=== PATIENT | female | born 1990 | race Caucasian/White ===

== ENCOUNTER 2021-03-28 12:58 | Emergency (ER) | payer SELFPAY ==
[2021-03-28 14:36] VITALS: BP 177/122; PULSE 88; RESP 18; TEMP 36.1; O2SAT 98; BMI 21.2
--- NOTE | 2021-03-28 15:16 | ED_ITS ---
HPI - COVID General: Chief Complaint: COVID symptoms Stated Complaint: not feeling well, no taste Time Seen by Provider: 03/28/21 15:11 Triage information: Has fever, cough or shortness of breath . No known COVID + exposure last 14 days History of Present Illness: HPI Narrative: Patient is a 31-year-old female comes to the ED with upper respiratory symptoms. Patient says symptoms started about 2 days ago. She reports having a loss of taste and smell with some nasal congestion and drainage along with body aches. She reports having a very mild dry cough. Denies any known COVID-19 positive contacts but would like to be t ested for COVID-19. COVID 19 common symptoms: positive non-productive cough, body aches and nasal congestion; negative fever(s), chills, productive cough, dyspnea, fatigue, headache(s), throat pain, nausea, vomiting or diarrhea COVID 19 other sytmptoms: negative chest pain COVID Results: No Data to Display Review of Systems Narrative: Loss of taste and smell. Const: Reports: body aches and malaise; Denies: fever(s), chills or fatigue Eyes: Denies: change in vision or eye discomfort ENMT: Reports: nasal discharge and nasal congestion; Denies: throat pain or odynophagia Card: Denies: chest pain, palpitations, edema, swelling of feet/ankles, dy spnea on exertion or orthopnea Resp: Reports: non-productive cough; Denies: dyspnea or productive cough GI: Denies: abdominal pain, nausea, vomiting, diarrhea, constipation or hematochezia : Denies: flank pain, dysuria or hematuria Musc: Denies: neck pain, back pain or extremity swelling Skin/Breast: Denies: rash or new lesions Neuro: Denies: headache(s), numbness in extremities or weakness in extremities Physical Exam Const: COMMON NORMALS: no acute distress, patient oriented x3 and alert GENERAL APPEARANCE: cooperative and comfortable HENMT: COMMON NORMALS: normocephalic HEAD & SCALP: normocephalic MOUTH: Normal oral and palatal mucosa present THROAT: posterior oropharynx normal and uvula midline Neck/C-Spine: COMMON NORMALS: supple GENERAL: Yes normal visual inspection Resp: COMMON NORMALS: normal respiratory effort, No retractions, No use of accessory muscles and clear to auscultation bilaterally EFFORT & INSPECTION: Yes able to speak in complete sentences, No tachypneic, No respiratory distress and No labored AUSCULTATION: clear to auscultation bilaterally Cardio: COMMON NORMALS: regular rate, regular rhythm, S1 normal heart sound present, S2 normal heart sound present, No gallops present (Cardio), No clicks present (Cardio), No murmurs present (Cardio) and Peripheral pulses 2+ throughout RATE: regular rate RHYTHM: regular rhythm HEART SOUNDS: S1 normal heart sound present and S2 normal heart sound present PERIPHERAL PULSES: Peripheral pulses 2+ throughout GI: COMMON NORMALS: Normal to inspection, nondistended, normoactive bowel sounds present, Soft to palpation, non-tender and no masses PALPATION: Yes Soft to palpation : COMMON NORMALS: Yes no CVA tenderness BLADDER/KIDNEY EXAM: Yes no CVA tenderness Back/Pelvis: COMMON NORMALS: no CVA tenderness Extremity: COMMON NORMALS: normal to inspection Neuro: COMMON NORMALS: patient oriented x3 and moves all extremities SENSORIUM/ORIENTATION: Yes alert Skin: GENERAL SKIN EXAM: dry skin Course Vital Signs: Vital signs: Vital Signs Temperature 96.9 F L 03/28/21 14:36 Pulse Rate 88 03/28/21 14:36 Respiratory Rate 18 03/28/21 14:36 Blood Pressure 177/122 03/28/21 14:36 Pulse Oximetry 98 03/28/21 14:36 MDM - COVID MDM Narrative: Medical decision making narrative: Patient is a 31-year-old female comes to the ED with mild Covid symptoms. Her vitals are stable and patient appears clinically well for discharge home. Rest of exam is benign. We performed a Covid PCR test and results are pending. Patient was instructed on self quarantine procedures and told to follow-up with PCP in 7 to 10 days reevaluation. Return to ED precautions given. Patient understood agree with plan. Lab Data: Attestation: I reviewed the patient's lab results. COVID Results: No Data to Display Discharge Plan Discharge Patient Disposition: Home Clinical Impression: Upper respiratory infection Qualifiers: URI type: unspecified viral URI Qualified Code(s): J06.9 - Acute upper respiratory infection, unspecified Condition: Stable Discharge Orders: Discharge ED (Routine); Ordered 03/28/21 Ordered By: Stevan Madeline Referrals: Roberto Ford MD [Primary Care Provider] - Discharge Diet: Regular Discharge Activity: Limit activity as instructed Patient Instructions: Upper Respiratory Infection (ED), Viral Syndrome (ED) Activity Restrictions/Additional Instructions: Follow-up with medical provider as directed in 7-10 days. COVID testing was performed and sent to lab and results will be back in 1 to 2 days. [facility] should contact you to let you know Covid results, but you can also contact [facility] to find out results as well. Self quarantine until you get Covid results. If positive self quarantine for the next 10 days starting from day of onset of symptoms. Take ibuprofen or Tylenol for fevers. Drink plenty of fluids and stay hydrated. Symptom management with [id number] cough and nasal decongestant meds. Return to the ER or your medical provider if condition worsens. Please read and understand discharge instructions. If any questions, please ask Coding Level of Care Code ED Back Filler Operator for Chg Fwd Exam Comprehensive
[2021-03-29 14:48] LABS: Coronavirus Test Green County Detected
--- NOTE | 2021-03-29 16:14 | PC.NURSE ---
notified pt of positive covid results.
== END 2021-03-28 15:40 | disposition home or self-care (01) ==
PROVIDERS: Emergency Provider Physician Assistant; PCP Obstetrics & Gynecology
DX: U07.1 COVID-19 (principal)
CPT/HCPCS: 87635; 99281

== ENCOUNTER 2023-04-08 18:37 | Emergency (ER) | payer MEDICAID, SELFPAY ==
[2023-04-08 19:01] VITALS: BP 205/144; PULSE 76; RESP 16; TEMP 36.6; O2SAT 98; BMI 26.0
[2023-04-08 19:52] VITALS: BP 198/137; PULSE 68; RESP 18; O2SAT 100
[2023-04-08] MEDS: labetalol 5 mg/mL SDV 20mL 10 MG IVP (20:14)
[2023-04-08] MEDS: sodium chloride 0.9% 1,000 ML 999 ML IV (20:14)
[2023-04-08] MEDS: famotidine 20 mg/2 mL INJ IVP (20:15)
[2023-04-08] MEDS: metoclopramide 5 mg/mL SDV 2 mL 10 MG IVP (20:15)
[2023-04-08 20:34] LABS: Basophils % 0.2 %; Eosinophils # 0.1 10^3/uL (0.0-0.8); Eosinophils % 0.9 %; Hematocrit 45.2 % (37.0-47.0); Hemoglobin 15.8 g/dL (11.5-15.3); Lymphocytes # 1.8 10^3/uL (0.8-4.8); Lymphocytes % 22.1 %; Mean Corpuscular Hemoglobin 32.7 pg (28.0-34.0); Mean Corpuscular Volume 93.6 fl (81-99); Mean Platelet Volume 9.9 fL (7.4-10.4); Monocytes # 0.5 10^3/uL (0.2-0.9); Monocytes % 6.3 %; Neutrophils # 5.65 10^3/uL (1.8-7.7); Neutrophils % 70.3 %; Nucleated Red Blood Cells % 0 %; Platelet Count 182 10^3/cmm (130-400); Red Blood Count 4.83 10^6/uL (4.1-5.3); Red Cell Distribution Width 14.3 % (12.1-15.1); White Blood Count 8.1 10^3/uL (4.0-10.0)
[2023-04-08 20:35] LABS: Add Urine Microscopic? NO; Charge for UA Resulting for Rev
[2023-04-08 20:51] LABS: Alanine Aminotransferase 13 U/L (0-33); Albumin Level 4.3 g/dL (3.5-5.2); Alkaline Phosphatase 69 U/L (35-105); Blood Urea Nitrogen 9 mg/dL (6-20); Calcium 9.3 mg/dL (8.5-10.5); Carbon Dioxide 23 mmol/L (22-29); Chloride 101 mmol/L (98-107); Globulin 3.1 g/dL (1.3-4.6); Glomerular Filtration Rate 140.4 mL/min (90-130); Glucose 89 mg/dL (65-115); Osmolality Calculated 280 mOsm/kg (285-295); Sodium 136 mmol/L (136-145); Total Bilirubin 0.5 mg/dL (0.15-1.2); Total Protein 7.4 g/dL (6.6-8.7)
[2023-04-08 20:57] LABS: Bilirubin Urine Neg (Negative); Blood Urine Neg (Negative); Glucose Urine UA Norm (Normal); Ketones Urine Negative (Negative); Leukocyte Esterase Urine Negative (Negative); Nitrate Urine Negative (Negative); Protein Urine Neg (Negative); Urine Appearance Clear (CLEAR); Urine Color Yellow (Yellow); Urobilinogen Urine 1 mg/dL (Negative); pH Urine 7 (5-7)
[2023-04-08 21:00] LABS: Anion Gap 15.7 (5-19); Aspartate Amino Transferase 15 U/L (0-32); Potassium 3.7 mmol/L (3.5-5.1)
[2023-04-08 21:04] VITALS: BP 205/148; PULSE 60; O2SAT 99
[2023-04-08] MEDS: labetalol 5 mg/mL SDV 20mL 20 MG IVP (21:24)
--- NOTE | 2023-04-08 21:28 | USR_ITS ---
PROCEDURE INFORMATION: Exam: US , Limited Exam date and time: 04/08/2023 9:45 PM Age: 33 years old Clinical indication: complicated by abdominal or pelvic pain; Right lower quadrant; First trimester (<14 weeks 0 days); Gestational age or lmp: 6weeks 3 days; LABS AND CLINICAL REPORTS: Last menstrual period start date: Unknown TECHNIQUE: Imaging protocol: Real-time ultrasound of the maternal uterus with image documentation. Exam focused on the clinical indication. COMPARISON: US OB limited [id number] 02/10/2018 3:42 AM FINDINGS: Gestation: 4.4 mm yolk sac. heart rate: 150 bpm. heart beat 150 bpm. BIOMETRY: Gestational age (AUA): 6 w 3 d. Single viable intrauterine with EGA 6 weeks 3 days. Estimated due date (AUA): SVEN by ultrasound November 29, 2023. Hoback-Rump length (CRL): 6.4 mm crown-rump length with EGA 6 weeks 3 days. MATERNAL: Right ovary/adnexa: 2.9 x 2.3 x 2.6 cm right ovary. Left ovary/adnexa: 3.9 x 3.8 x 2.6 cm left ovary. US/US OB >= 14 weeks fetus [id number] IMPRESSION: 1. Single viable intrauterine with EGA 6 weeks 3 days. 2. SVEN by ultrasound November 29, 2023.
--- NOTE | 2023-04-08 22:21 | ED_ITS ---
HPI - Nausea/Vomiting/Diarrhea General: Chief complaint: Nausea/Vomiting/Diarrhea Stated complaint: 16 weeks , chills, nausea Time Seen by Provider: 04/08/23 19:47 History of Present Illness: 33-year-old occasion female who is G5, P2 with current treatment of unknown age. Patient reveals that she is about 20 weeks by last menstruation. No recent care with this . Is any vaginal bleeding, vaginal discharge, back pain, headache. Presents emergency room today with with nausea, vomiting and chills within the past few days. Denies any dysuria, hematuria, blurry vision, change in vision. She also reveals having history of hypertension prior to getting and stopped taking all of medication for blood pressure. Upon present emergency room the patient was found to have elevated blood pressure. Associated symtoms: Denies chest pain, fatigue, malaise, palpitations or syncope Review of Systems General: Reports: 10 or more systems reviewed and unremarkable except in HPI and below Const: Reports: chills; Denies: fever(s), body aches, change in appetite, change in weight, fatigue or malaise Card: Denies: chest pain, palpitations, irregular heart rhythm, swelling of feet/ankles, lightheadedness or syncope [facility] ED PFSH: Medical History (Updated 04/08/23 @ 22:32 by Lianna Dunne MD) Psychiatric care Physical Exam Const: COMMON NORMALS: no acute distress, average body habitus, patient oriented x3, no limitations, healthy appearing, alert and well nourished HENMT: COMMON NORMALS: normocephalic, atraumatic, hearing grossly normal bilaterally, external ears normal, EAC's normal, TM's normal bilaterally, Normal external nose present, Normal nasal mucous membranes and turbinates present, moist oral mucous membranes, oropharynx normal, dentition normal and gingiva normal HEAD & SCALP: normocephalic and atraumatic NOSE: Normal external nose present and Normal nasal mucous membranes and turbinates present EXTERNAL EAR: Yes external ears normal EXTERNAL AUDITORY CANAL: EAC's normal TYMPANIC MEMBRANE: TM's normal bilaterally Neck/C-Spine: COMMON NORMALS: full ROM, no lymphadenopathy, supple, no meningeal signs, no JVD, Thyroid normal and No carotid bruits THYROID: Thyroid normal Chest: COMMONS NORMALS: normal inspection of the chest, normal palpation of entire chest wall, normal inspection of the breasts and normal palpation of the breasts Breast/axilla inspection: Yes normal inspection of the breasts BREAST/AXILLA PALPATION: Yes normal palpation of the breasts Resp: COMMON NORMALS: normal respiratory effort, No retractions, No use of accessory muscles, clear to auscultation bilaterally and percussion normal AUSCULTATION: clear to auscultation bilaterally PERCUSSION: percussion normal Cardio: COMMON NORMALS: no JVD GI: COMMON NORMALS: Normal to inspection, nondistended, normoactive bowel sounds present, Soft to palpation, non-tender, No hepatosplenomegaly present, no masses and no bruits PALPATION: Yes Soft to palpation and Yes No hepatosplenomegaly present Extremity: COMMON NORMALS: normal to inspection, full ROM, capillary refill normal, no joint enlargement, no clubbing, cyanosis or edema, no calf tenderness and no pedal edema Neuro: COMMON NORMALS: patient oriented x3 SENSORIUM/ORIENTATION: Yes alert MENINGEAL SIGNS: Yes no meningeal signs Skin: COMMON NORMALS: no rashes or lesions noted, no wounds, turgor normal, no jaundice, no petechiae and no mottling GENERAL SKIN EXAM: no rashes or lesions noted and turgor normal Course Reevaluation(s): Reevaluation #1: stable in ER. nausea nad vomiting resolved but patient still with elevated blood pressure Consultations: Consultation #1: spoke with ob Dr White. recommended transfer to higher level of care Consultation #2: disused pt with [facility] and i was told the have no space for ER to ER transfer. spoke with [facility] and current waiting for acceptance Vital Signs: Vital signs: Vital Signs Temperature 97.9 F 04/08/23 19:01 Pulse Rate 78 04/08/23 23:49 Respiratory Rate 16 04/08/23 23:49 Blood Pressure 173/108 04/08/23 23:49 Pulse Oximetry 99 04/08/23 23:49 Oxygen Delivery Me thod Room Air 04/08/23 23:49 MDM - Nausea/Vomiting/Diarrhea Medical Decision Making Patient made comfortable emergency room. Patient was given multiple rounds of labetalol and hydralazine. Patient had ultrasound, CBC, CMP, UA. He was given IV fluids and Zofran. Discussed patient with OB and he recommended transfer to higher level of care facility. Discussed patient with [facility] transfer center and [facility] transfer center. Patient was accepted by Dr. Rooney at [facility] in [place]. While in emergency room, blood pressure did improve with multiple IV medication. Differential Diagnosis Likely traveler's diarrhea, food poisoning, gastroenteritis, drug-induced nausea and vomiting and dehydration (Cancer, preeclampsia, UTI) Lab Data 04/08/23 20:10 04/08/23 20:10 Radiology Impressions Ultrasound 04/08/23 21:28 IMPRESSION: 1. Single viable intrauterine with EGA 6 weeks 3 days. 2. SVEN by ultrasound November 29, 2023. Laboratory Results WBC 8.1 10^3/uL (4.0-10.0) 04/08/23 20:10 RBC 4.83 10^6/uL (4.1-5.3) 04/08/23 20:10 Hgb 15.8 g/dL (11.5-15.3) H 04/08/23 20:10 Hct 45.2 % (37.0-47.0) 04/08/23 20:10 MCV 93.6 fl (81-99) 04/08/23 20:10 MCH 32.7 pg (28.0-34.0) 04/08/23 20:10 MCHC 35.0 g/dL (30.0-36.0) 04/08/23 20:10 RDW 14.3 % (12.1-15.1) 04/08/23 20:10 Plt Count 182 10^3/cmm (130-400) 04/08/23 20:10 MPV 9.9 fL (7.4-10.4) 04/08/23 20:10 Neut % (Auto) 70.3 % 04/08/23 20:10 Lymph % (Auto) 22.1 % 04/08/23 20:10 Sevier % (Auto) 6.3 % 04/08/23 20:10 Eos % (Auto) 0.9 % 04/08/23 20:10 Baso % (Auto) 0.2 % 04/08/23 20:10 Neut # (Auto) 5.65 10^3/uL (1.8-7.7) 04/08/23 20:10 Lymph # (Auto) 1.8 10^3/uL (0.8-4.8) 04/08/23 20:10 Sevier # (Auto) 0.5 10^3/uL (0.2-0.9) 04/08/23 20:10 Eos # (Auto) 0.1 10^3/uL (0.0-0.8) 04/08/23 20:10 Baso # (Auto) 0.0 10^3/uL (0.0-0.1) 04/08/23 20:10 Nucleated RBC % (auto) 0 % 04/08/23 20:10 Nucleated RBCs # 0.0 /100WBC 04/08/23 20:10 Sodium 136 mmol/L (136-145) 04/08/23 20:10 Potassium 3.7 mmol/L (3.5-5.1) 04/08/23 20:10 Chloride 101 mmol/L (98-107) 04/08/23 20:10 Carbon Dioxide 23 mmol/L (22-29) 04/08/23 20:10 Anion Gap 15.7 (5-19) 04/08/23 20:10 BUN 9 mg/dL (6-20) 04/08/23 20:10 Creatinine 0.5 mg/dL (0.5-0.9) 04/08/23 20:10 GFR Calculation 140.4 mL/min (90-130) H 04/08/23 20:10 Glucose 89 mg/dL (65-115) 04/08/23 20:10 Calculated Osmolality 280 mOsm/kg (285-295) L 04/08/23 20:10 Calcium 9.3 mg/dL (8.5-10.5) 04/08/23 20:10 Total Bilirubin 0.5 mg/dL (0.15-1.2) 04/08/23 20:10 AST 15 U/L (0-32) 04/08/23 20:10 ALT 13 U/L (0-33) 04/08/23 20:10 Alkaline Phosphatase 69 U/L (35-105) 04/08/23 20:10 Total Protein 7.4 g/dL (6.6-8.7) 04/08/23 20:10 Albumin 4.3 g/dL (3.5-5.2) 04/08/23 20:10 Globulin 3.1 g/dL (1.3-4.6) 04/08/23 20:10 Urine Color Yellow (Yellow) 04/08/23 20:27 Urine Appearance Clear (CLEAR) 04/08/23 20:27 Urine pH 7 (5-7) 04/08/23 20:27 Ur Specific Dolores 1.020 (1.005-1.030) 04/08/23 20:27 Urine Protein Neg (Negative) 04/08/23 20:27 Urine Glucose (UA) Norm (Normal) 04/08/23 20:27 Urine Ketones Negative (Negative) 04/08/23 20:27 Urine Blood Neg (Negative) 04/08/23 20:27 Urine Nitrate Negative (Negative) 04/08/23 20:27 Urine Bilirubin Neg (Negative) 04/08/23 20:27 Urine Urobilinogen 1 mg/dL (Negative) H 04/08/23 20:27 Ur Leukocyte Esterase Negative (Negative) 04/08/23 20:27 Critical Care Time Critical Care Time: Critical Care Time: Yes Total Critical Care Time: 45 Attestation: Time spent reexamining patient on multiple occasions. Time spent discussing patient with family, hospitalist and COMPUTER OPERATIONS SUPERVISOR. Time spent reviewing labs and previous medical records. Discharge Plan Discharge Patient Disposition: Xfer Intermediate Care Fac Clinical Impression: Nausea and vomiting during , Hypertensive urgency Condition: Stable Coding Level of Care Code ED Acting Manager for Salma Siu
[2023-04-08 22:45] VITALS: BP 187/122; PULSE 69; O2SAT 98
[2023-04-08] MEDS: hyDRALAzine 20 mg/mL INJ 1 mL 10 MG IVP (23:24)
[2023-04-08 23:49] VITALS: BP 173/108; PULSE 78; RESP 16; O2SAT 99
--- NOTE | 2023-04-09 | PC.NURSE ---
Report called to Melany Amin RN in [facility]. All questions and concerns addressed at time of report.
== END 2023-04-09 01:02 | disposition intermediate care facility (04) ==
PROVIDERS: Emergency Provider Family Medicine
DX: O26.891 Other specified pregnancy related conditions, first trimester (principal); R11.2 Nausea with vomiting, unspecified; O16.1 Unspecified maternal hypertension, first trimester; Z3A.01 Less than 8 weeks gestation of pregnancy
CPT/HCPCS: 76805; 80053; 81003; 85025; 96374; 96375; 96376; 99284; J0360; J2765; J3490; J7030

== ENCOUNTER → 2023-04-15 11:47 | Outpatient (BNVA) | payer SELFPAY | PROVIDERS: Visit Provider Nurse Practitioner Women's Health | DX: Z34.90 Encounter for supervision of normal pregnancy, unspecified, unspecified trimester (principal); N73.0 Acute parametritis and pelvic cellulitis; Z3A.00 Weeks of gestation of pregnancy not specified | CPT/HCPCS: 81000 ==

== ENCOUNTER 2023-04-24 04:37 | Emergency (ER) | payer MEDICAID, SELFPAY ==
[2023-04-24 04:37] VITALS: BP 176/126; PULSE 109; RESP 26; O2SAT 100; BMI 25.4
--- NOTE | 2023-04-24 04:47 | XRR_ITS ---
PROCEDURE INFORMATION: Exam: XR Chest Exam date and time: 04/24/2023 4:51 AM Age: 33 years old Clinical indication: Other: Cardiac arrest TECHNIQUE: Imaging protocol: Radiologic exam of the chest. Views: 1 view. COMPARISON: No relevant prior studies available. FINDINGS: Tubes, catheters and devices: Unremarkable endotracheal tube position. Lungs: Unremarkable. No consolidation. Pleural spaces: Unremarkable. No pleural effusion. No pneumothorax. Heart/Mediastinum: Unremarkable. No cardiomegaly. Bones/joints: Unremarkable. XR/XR chest 1V portable [id number] IMPRESSION: 1. No pulmonary disease. 2. Satisfactory endotracheal intubation.
--- NOTE | 2023-04-24 04:47 | ECG_ITS ---
[facility] Test Date: 2023-04-24 Pat Name: Avelina Crain Department: Room: Gender: Female Purchasing Specialist: : [id number] Requested By: Demi Glynn Order Number: [id number] Prakash MD: Iris Treadwell M.D. Measurements Intervals [place] Rate: 117 P: 95 DE: 133 QRS: 38 QRSD: 100 T: 48 QT: 362 QTc: 506 Interpretive Statements SINUS TACHYCARDIA ABNORMAL RHYTHM ECG INTERPRETATION BASED ON A DEFAULT AGE OF 40 YEARS No previous ECG available for comparison Electronically Signed On 04-24-2023 9:17:35 CDT by Iris Treadwell M.D. [id number] f
[2023-04-24 05:03] VITALS: RESP 33
--- NOTE | 2023-04-24 05:06 | CTR_ITS ---
PROCEDURE INFORMATION: Exam: CTA Chest With Contrast Exam date and time: 04/24/2023 6:01 AM Age: 33 years old Clinical indication: Dyspnea; Patient HX: Seizure like activity, cardiac arrest, SOB TECHNIQUE: Imaging protocol: Computed tomographic angiography of the chest with contrast. Exam focused on the arteries. 3D rendering (Not supervised by radiologist): MIP and/or 3D reconstructed images were created by the technologist. Radiation optimization: All CT scans at this facility use at least one of these dose optimization techniques: automated exposure control; mA and/or kV adjustment per patient size (includes targeted exams where dose is matched to clinical indication); or iterative reconstruction. Contrast material: OMNI 350; Contrast volume: 80 ml; Contrast route: INTRAVENOUS (IV); REPORTING DATA: Count of CT and Cardiac NM exams in prior 12 months: This patient has received 0 known CTs and 0 known cardiac nuclear medicine studies in the 12 months prior to the current study. COMPARISON: CR (CHEST, ) 04/24/2023 5:18 AM RADIATION DOSE METRICS: Total DLP (mGy-cm): 383.92 FINDINGS: Tubes, catheters and devices: Enteric tube terminates within the stomach. Right upper extremity PICC terminates at the superior atriocaval junction. Tracheostomy tube terminates approximately 0.3 cm above the lc. Pulmonary arteries: Pulmonary arteries are normal. No evidence of pulmonary thromboembolism. Aorta: Unremarkable. No aortic aneurysm. No aortic dissection. Thyroid: Thyroid is normal. Lungs: Numerous small patchy ground-glass opacities throughout the bilateral lungs, more prominent posteriorly. Many of these demonstrate central consolidation. Mild dependent atelectasis bilaterally. Pleural spaces: Unremarkable. No pneumothorax. No pleural effusion. Heart: Unremarkable. No cardiomegaly. No pericardial effusion. Lymph nodes: No suspicious axillary, mediastinal, or hilar lymphadenopathy. Spleen: Punctate calcifications in the spleen, likely secondary to prior granulomatous disease. Bones/joints: No acute osseous findings. Soft tissues: The superficial soft tissues are normal. CT/CT angio chest PE protcl [id number] IMPRESSION: 1. Tracheostomy tube terminates approximately 0.3 cm above the lc. Recommend retraction by 2-3 cm. 2. Numerous small patchy ground-glass opacities throughout the bilateral lungs, more prominent posteriorly. Many of these demonstrate central consolidation. Given reported history, this likely represents sequelae of aspiration. An infectious etiology is considered less likely but is not excluded. Consider repeat CT chest without contrast upon resolution of current symptoms to evaluate for resolution. 3. No evidence of pulmonary thromboembolism.
--- NOTE | 2023-04-24 05:06 | CTR_ITS ---
PROCEDURE INFORMATION: Exam: CT Head Without Contrast Exam date and time: 04/24/2023 5:57 AM Age: 33 years old Clinical indication: Patient HX: Seizure like activity, cardiac arrest; Additional info: AMS TECHNIQUE: Imaging protocol: Computed tomography of the head without contrast. Radiation optimization: All CT scans at this facility use at least one of these dose optimization techniques: automated exposure control; mA and/or kV adjustment per patient size (includes targeted exams where dose is matched to clinical indication); or iterative reconstruction. REPORTING DATA: Count of CT and Cardiac NM exams in prior 12 months: This patient has received 0 known CTs and 0 known cardiac nuclear medicine studies in the 12 months prior to the current study. COMPARISON: No relevant prior studies available. RADIATION DOSE METRICS: Total DLP (mGy-cm): 1084.58 FINDINGS: Brain: No acute intracranial hemorrhage or mass effect. No definite acute infarct by CT. MRI would be more sensitive/specific for detection, as clinically directed. Cerebral ventricles: Ventricle size is normal for age. Paranasal sinuses: Very mild mucosal thickening/fluid in the sphenoid sinus. Included paranasal sinuses otherwise appear essentially clear. Mastoid air cells: No significant acute finding. Bones/joints: No definite acute skull fracture. Soft tissues: No significant acute finding. Vasculature: The tip of the basilar artery appears somewhat prominent and/or tortuous, measuring up to about 4-5 mm in diameter. A small basilar tip aneurysm is possible. There is no adjacent subarachnoid hemorrhage. CTA Brain could further evaluate, as clinically needed. CT/CT head wo con* [id number] IMPRESSION: 1. No acute intracranial hemorrhage or mass effect. 2. No definite acute infarct by CT, see above. 3. Possibility of small basilar tip aneurysm, details above. There is no associated subarachnoid hemorrhage. 4. Other findings discussed above.
--- NOTE | 2023-04-24 05:16 | XRR_ITS ---
PROCEDURE INFORMATION: Exam: XR Chest Exam date and time: 04/24/2023 5:18 AM Age: 33 years old Clinical indication: Other: Cardiac arrest; Additional info: SOB TECHNIQUE: Imaging protocol: Radiologic exam of the chest. Views: 1 view. COMPARISON: CR (CHEST, ) 04/24/2023 4:51 AM FINDINGS: Tubes, catheters and devices: Unremarkable endotracheal tube and enteric tube positions. Lungs: Unremarkable. No consolidation. Pleural spaces: Unremarkable. No pleural effusion. No pneumothorax. Heart/Mediastinum: Unremarkable. No cardiomegaly. Bones/joints: Unremarkable. XR/XR chest 1V portable [id number] IMPRESSION: No acute pulmonary disease identified.
[2023-04-24 05:20] LABS: Basophils # 0.1 10^3/uL (0.0-0.1); Basophils % 0.3 %; Eosinophils # 0.1 10^3/uL (0.0-0.8); Eosinophils % 0.3 %; Hematocrit 49.2 % (36-47); Lymphocytes # 1.8 10^3/uL (0.8-4.8); Lymphocytes % 7.4 %; Mean Corpuscular HGB Conc 33.7 g/dL (30-55); Mean Corpuscular Hemoglobin 32.4 pg (27-33); Mean Corpuscular Volume 95.9 fl (85-98); Mean Platelet Volume 9.8 fL (7.4-10.4); Monocytes # 0.8 10^3/uL (0.2-0.9); Monocytes % 3.2 %; Neutrophils # 21.22 10^3/uL (1.8-7.7); Neutrophils % 88.2 %; Nucleated Red Blood Cells % 0 %; Platelet Count 202 10^3/cmm (157-399); Red Blood Count 5.13 10^6/uL (3.85-5.65); Red Cell Distribution Width 13.8 % (12.1-15.1); White Blood Count 24.07 10^3/uL (3.29-11.43)
[2023-04-24] MEDS: hyDRALAzine 20 mg/mL INJ 1 mL 10 MG IVP (05:24)
--- NOTE | 2023-04-24 05:25 | ED_ITS ---
Documented by User: Demi Glynn MD 04/24/23 05:49 HPI - General Adult General: Chief complaint: Cardiac Arrest/CPR Stated complaint: cardiac arrest Time Seen by Provider: 04/24/23 04:46 Source: EMS Mode of arrival: EMS Limitations: altered mental status History of Present Illness: 33-year-old female currently roughly 10 weeks per EMS states that she quit breathing he did perform CPR called EMS when EMS arrived she is in V-fib arrest they did cardiovert her leg gave her 1 dose epinephrine they have had return of spontaneous circulation patient is hypertensive here she has had a history of hypertension as well. They have an Igel in place for her airway at this time they did give her Versed in route they state that she is starting to have some movement. Spoke to family more she has had hypertension with this and was admitted at [facility] roughly 2 weeks ago for her hypertension he states that she been having some shoulder and back pain last night was actually seen at [facility] and went home and woke up this morning with more back pain and then states that he had woke up and she had wellness making gurgly sounds and not responding Review of Systems General: Reports: ROS unobtainable due to mental status PFSH ED PFSH: Medical History Psychiatric care Family History (Updated 04/15/23 @ 11:29 by Maria Luz Artis CMA) Grandmother Diabetes Maternal Hypertension Denies family history of Cervical cancer Breast cancer Stroke Physical Exam Const: COMMON NORMALS: negative for patient oriented x3 OTHER: Sedated with Versed has an i-gel in place HENMT: COMMON NORMALS: atraumatic HEAD & SCALP: atraumatic Eye: OTHER: Lots of mucus and nasal opening noted Neck/C-Spine: COMMON NORMALS: supple Chest: COMMONS NORMALS: normal inspection of the chest and normal palpation of entire chest wall Resp: OTHER: Patient has i-gel in place good breath sounds bilaterally she is breathing over the i-gel on her own as well Cardio: COMMON NORMALS: regular rate and regular rhythm RATE: regular rate RHYTHM: regular rhythm GI: COMMON NORMALS: Normal to inspection, nondistended, normoactive bowel sounds present and Soft to palpation PALPATION: Yes Soft to palpation Extremity: COMMON NORMALS: normal to inspection Neuro: COMMON NORMALS: negative for patient oriented x3 Psych: COMMON NORMALS: negative for mental status grossly normal Skin: COMMON NORMALS: no rashes or lesions noted GENERAL SKIN EXAM: no rashes or lesions noted Procedures Intubation Time out performed: Yes sedative: Etomidate Mg Given: 20 paralytic: Succinylcholine Mg Given: 100 Laryngoscope: Krunal ET Tube Size: 8 ET Tube Uncuffed: No Tube Secured Depth (cm): 25 Tube Secured Location: teeth Tube Placement Confirmation: visualized tube passing through cords, equal breath sounds bilaterally, no breath sounds over epigastrium and confirmation by capnometry Patient Tolerated Procedure: well Intubation Complications: none Course Vital Signs: Vital signs: Vital Signs Pulse Rate 121 H 04/24/23 07:55 Respiratory Rate 28 H 04/24/23 07:55 Blood Pressure 136/102 04/24/23 07:55 Pulse Oximetry 98 04/24/23 07:55 Oxygen Delivery Me thod Mechanical Ventil ation 04/24/23 07:55 Fraction of Inspir ed Oxygen 40 04/24/23 07:20 MDM - General Adult Medical Decision Making Patient presents here with likely V-fib arrest had first return of spontaneous circulation by EMS after cardioversion. Patient here is hypertensive. Her EKG here is normal I did review this with our division commander Dr. Rae who reviewed the EKG patient does not need to go to the Hydraulics Engineer immediately. Patient will likely need transfer for higher level of care due to having uncontrolled hypertension in along with needing maternal- medicine patient's care turned over to Dr. Jurado following scans and labs Lab Data 04/24/23 05:16 04/24/23 05:16 Radiology Impressions Chest CTA 04/24/23 05:06 IMPRESSION: 1. Tracheostomy tube terminates approximately 0.3 cm above the lc. Recommend retraction by 2-3 cm. 2. Numerous small patchy ground-glass opacities throughout the bilateral lungs, more prominent posteriorly. Many of these demonstrate central consolidation. Given reported history, this likely represents sequelae of aspiration. An infectious etiology is considered less likely but is not excluded. Consider repeat CT chest without contrast upon resolution of current symptoms to evaluate for resolution. 3. No evidence of pulmonary thromboembolism. Head CT 04/24/23 05:06 IMPRESSION: 1. No acute intracranial hemorrhage or mass effect. 2. No definite acute infarct by CT, see above. 3. Possibility of small basilar tip aneurysm, details above. There is no associated subarachnoid hemorrhage. 4. Other findings discussed above. Chest X-Ray 04/24/23 05:16 IMPRESSION: No acute pulmonary disease identified. Ultrasound 04/24/23 06:01 IMPRESSION: 1. Single living intrauterine fetus, 9 weeks, 3 days estimated age. 2. Other details discussed above. Laboratory Results WBC 24.07 10^3/uL (3.29-11.43) H 04/24/23 05:16 RBC 5.13 10^6/uL (3.85-5.65) 04/24/23 05:16 Hgb 16.60 g/dL (11.27-16.99) 04/24/23 05:16 Hct 49.2 % (36-47) H 04/24/23 05:16 MCV 95.9 fl (85-98) 04/24/23 05:16 MCH 32.4 pg (27-33) 04/24/23 05:16 MCHC 33.7 g/dL (30-55) 04/24/23 05:16 RDW 13.8 % (12.1-15.1) 04/24/23 05:16 Plt Count 202 10^3/cmm (157-399) 04/24/23 05:16 MPV 9.8 fL (7.4-10.4) 04/24/23 05:16 Neut % (Auto) 88.2 % 04/24/23 05:16 Lymph % (Auto) 7.4 % 04/24/23 05:16 Curry % (Auto) 3.2 % 04/24/23 05:16 Eos % (Auto) 0.3 % 04/24/23 05:16 Baso % (Auto) 0.3 % 04/24/23 05:16 Neut # (Auto) 21.22 10^3/uL (1.8-7.7) H 04/24/23 05:16 Lymph # (Auto) 1.8 10^3/uL (0.8-4.8) 04/24/23 05:16 Curry # (Auto) 0.8 10^3/uL (0.2-0.9) 04/24/23 05:16 Eos # (Auto) 0.1 10^3/uL (0.0-0.8) 04/24/23 05:16 Baso # (Auto) 0.1 10^3/uL (0.0-0.1) 04/24/23 05:16 Nucleated RBC % (auto) 0 % 04/24/23 05:16 Nucleated RBCs # 0.0 /100WBC 04/24/23 05:16 PT 14.50 SECONDS (12.1-14.9) 04/24/23 07:30 INR 1.10 (0.8-1.2) 04/24/23 07:30 Specimen Type Arterial 04/24/23 05:18 Sample Site Brachial, right 04/24/23 05:18 ABG pH 7.25 (7.35-7.45) L 04/24/23 05:18 ABG pCO2 43.1 mmHg (35-45) 04/24/23 05:18 ABG pO2 313.0 mmHg (80.0-100.0) H 04/24/23 05:18 ABG HCO3 19.0 mmol/L (22-26) L 04/24/23 05:18 ABG Base Excess -8.1 mmol/L (-2.0-2.0) L 04/24/23 05:18 Oral Test N/a 04/24/23 05:18 Hematocrit 51.4 % (37-47) H 04/24/23 05:18 O2 Delivery Device Vent 04/24/23 05:18 FiO2 100.0 % 04/24/23 05:18 Tidal Volume 0.40 04/24/23 05:18 PEEP 8.0 cmH20 04/24/23 05:18 Movie Shot Camera Operator ID Bereket 04/24/23 05:18 Sodium 138 mmol/L (136-145) 04/24/23 05:16 Potassium 4.2 mmol/L (3.5-5.1) 04/24/23 05:16 Chloride 102 mmol/L (98-107) 04/24/23 05:16 Carbon Dioxide 18 mmol/L (22-29) L 04/24/23 05:16 Anion Gap 22.2 (5-19) H 04/24/23 05:16 BUN 9 mg/dL (6-20) 04/24/23 05:16 Creatinine 0.7 mg/dL (0.5-0.9) 04/24/23 05:16 GFR Calculation 95.2 mL/min (90-130) 04/24/23 05:16 Glucose 231 mg/dL (65-115) H 04/24/23 05:16 POC Glucose 209 mg/dL (70-110) H 04/24/23 07:36 Calculated Osmolality 292 mOsm/kg (285-295) 04/24/23 05:16 Lactic Acid 2.9 mmol/L (0.5-2.2) H 04/24/23 07:30 Calcium 8.6 mg/dL (8.5-10.5) 04/24/23 05:16 Magnesium 1.9 mg/dL (1.7-2.3) 04/24/23 05:16 Total Bilirubin 0.7 mg/dL (0.15-1.2) 04/24/23 05:16 AST 587 U/L (0-32) H 04/24/23 05:16 ALT 535 U/L (0-33) H 04/24/23 05:16 Alkaline Phosphatase 84 U/L (35-105) 04/24/23 05:16 Troponin T Baseline 536 ng/L (0-10) H* 04/24/23 05:16 Troponin T 120 Minute 1424 ng/L (0-10) H 04/24/23 07:30 Delta Troponin T 888 ABS# (0-10) H* 04/24/23 07:30 Total Protein 7.3 g/dL (6.6-8.7) 04/24/23 05:16 Albumin 4.5 g/dL (3.5-5.2) 04/24/23 05:16 Globulin 2.8 g/dL (1.3-4.6) 04/24/23 05:16 Ser , Semi-Qnt 08167.00 mIU/mL 04/24/23 05:16 Urine Color Straw (Yellow) 04/24/23 06:41 Urine Appearance Clear (CLEAR) 04/24/23 06:41 Urine pH 5 (5-7) 04/24/23 06:41 Ur Specific Holl[place] 1.005 (1.005-1.030) 04/24/23 06:41 Urine Protein Neg (Negative) 04/24/23 06:41 Urine Glucose (UA) 4+ (Normal) H 04/24/23 06:41 Urine Ketones Negative (Negative) 04/24/23 06:41 Urine Blood 2+ (Negative) H 04/24/23 06:41 Urine Nitrate Negative (Negative) 04/24/23 06:41 Urine Bilirubin Neg (Negative) 04/24/23 06:41 Urine Urobilinogen Norm mg/dL (Negative) 04/24/23 06:41 Ur Leukocyte Esterase Negative (Negative) 04/24/23 06:41 Urine RBC 0-4 /hpf (0-2) H 04/24/23 06:41 Urine WBC 0-4 /hpf (0-5) H 04/24/23 06:41 Ur Squamous Epith Cells 0-4 /hpf (0-5) H 04/24/23 06:41 Amorphous Sediment Not Reportable 04/24/23 06:41 Urine Bacteria Trace /hpf (NONE) 04/24/23 06:41 Salicylates < 0.3 mg/dL (3-10) L 04/24/23 05:16 Urine Opiates Screen Negative ng/mL (Negative) 04/24/23 06:41 Acetaminophen < 5.0 ug/mL (10-30) L 04/24/23 05:16 Ur Barbiturates Screen Negative ng/mL (Negative) 04/24/23 06:41 Ur Phencyclidine Scrn Negative ng/mL (Negative) 04/24/23 06:41 Ur Amphetamines Screen Negative ng/mL (Negative) 04/24/23 06:41 U Benzodiazepines Scrn Negative ng/mL (Negative) 04/24/23 06:41 Urine Cocaine Screen Negative ng/mL (Negative) 04/24/23 06:41 U Marijuana (THC) Screen Positive ng/mL (Negative) H 04/24/23 06:41 Ethyl Alcohol < 10 mg/dL (0-10) 04/24/23 05:16 Discharge Plan Discharge Patient Disposition: Xfer Short-Term Hosp Clinical Impression: Cardiac arrest with ventricular fibrillation, Chronic hypertension affecting , , Hypertensive emergency Condition: Stable Coding Level of Care Code ED Upholstery Tech for Chg Salbador Documented by User: Jose Alfredo Jurado, DO 04/24/23 12:18 HPI - General Adult General: Chief complaint: Cardiac Arrest/CPR Stated complaint: cardiac arrest Time Seen by Provider: 04/24/23 04:46 [facility] ED PFSH: Medical History Psychiatric care Family History (Updated 04/15/23 @ 11:29 by Maria Luz Artis CMA) Grandmother Diabetes Maternal Hypertension Denies family history of Cervical cancer Breast cancer Stroke Course Vital Signs: Vital signs: Vital Signs Pulse Rate 121 H 04/24/23 07:55 Respiratory Rate 28 H 04/24/23 07:55 Blood Pressure 136/102 04/24/23 07:55 Pulse Oximetry 98 04/24/23 07:55 Oxygen Delivery Me thod Mechanical Ventil ation 04/24/23 07:55 Fraction of Inspir ed Oxygen 40 04/24/23 07:20 MDM - General Adult Medical Decision Making Patient presents here with likely V-fib arrest had first return of spontaneous circulation by EMS after cardioversion. Patient here is hypertensive. Her EKG here is normal I did review this with our division commander Dr. Rae who reviewed the EKG patient does not need to go to the Hydraulics Engineer immediately. Patient will likely need transfer for higher level of care due to having uncontrolled hypertension in along with needing maternal- medicine patient's care turned over to Dr. Jurado following scans and labs Care assumed at change of shift from Dr. Glynn. Patient is stable at this time status postcardiac arrest. We called 911 and EMS to confirm the best timeline we can assemble is a 30-minute downtime. From approximate time of her significant other finding her nonresponsive to the time ROSC was achieved was 30 minutes. She was defibrillated 3 times by EMS before achieving ROSC. She currently has fentanyl and propofol drips for sedation review of her CT shows questionable aspiration no pulmonary embolism ET tube needs to be withdrawn 2 to 3 cm which was done by respiratory therapy. We will also started nicardipine for blood pressure control and given a couple of push dose of labetalol as well. Was started on labetalol drip at 1 mg/min. Patient will need continuous monitoring at by neurology as well as intensive cardiac work-up and consideration for ICD. We do not have the services available here and she will need to be transferred for these needs. Additionally she will need to be evaluated by maternal- medicine. At this time she is stable for transfer anticipate transfer by air ambulance to [facility]. Dr. Rae as stopped by the department and advised starting IV heparin he concurs with transfer as well. Medical Records I reviewed the patient's medical records. Lab Data I reviewed the patient's lab results. 04/24/23 05:16 04/24/23 05:16 Radiology Impressions Chest CTA 04/24/23 05:06 IMPRESSION: 1. Tracheostomy tube terminates approximately 0.3 cm above the lc. Recommend retraction by 2-3 cm. 2. Numerous small patchy ground-glass opacities throughout the bilateral lungs, more prominent posteriorly. Many of these demonstrate central consolidation. Given reported history, this likely represents sequelae of aspiration. An infectious etiology is considered less likely but is not excluded. Consider repeat CT chest without contrast upon resolution of current symptoms to evaluate for resolution. 3. No evidence of pulmonary thromboembolism. Head CT 04/24/23 05:06 IMPRESSION: 1. No acute intracranial hemorrhage or mass effect. 2. No definite acute infarct by CT, see above. 3. Possibility of small basilar tip aneurysm, details above. There is no associated subarachnoid hemorrhage. 4. Other findings discussed above. Chest X-Ray 04/24/23 05:16 IMPRESSION: No acute pulmonary disease identified. Ultrasound 04/24/23 06:01 IMPRESSION: 1. Single living intrauterine fetus, 9 weeks, 3 days estimated age. 2. Other details discussed above. Laboratory Results WBC 24.07 10^3/uL (3.29-11.43) H 04/24/23 05:16 RBC 5.13 10^6/uL (3.85-5.65) 04/24/23 05:16 Hgb 16.60 g/dL (11.27-16.99) 04/24/23 05:16 Hct 49.2 % (36-47) H 04/24/23 05:16 MCV 95.9 fl (85-98) 04/24/23 05:16 MCH 32.4 pg (27-33) 04/24/23 05:16 MCHC 33.7 g/dL (30-55) 04/24/23 05:16 RDW 13.8 % (12.1-15.1) 04/24/23 05:16 Plt Count 202 10^3/cmm (157-399) 04/24/23 05:16 MPV 9.8 fL (7.4-10.4) 04/24/23 05:16 Neut % (Auto) 88.2 % 04/24/23 05:16 Lymph % (Auto) 7.4 % 04/24/23 05:16 Curry % (Auto) 3.2 % 04/24/23 05:16 Eos % (Auto) 0.3 % 04/24/23 05:16 Baso % (Auto) 0.3 % 04/24/23 05:16 Neut # (Auto) 21.22 10^3/uL (1.8-7.7) H 04/24/23 05:16 Lymph # (Auto) 1.8 10^3/uL (0.8-4.8) 04/24/23 05:16 Curry # (Auto) 0.8 10^3/uL (0.2-0.9) 04/24/23 05:16 Eos # (Auto) 0.1 10^3/uL (0.0-0.8) 04/24/23 05:16 Baso # (Auto) 0.1 10^3/uL (0.0-0.1) 04/24/23 05:16 Nucleated RBC % (auto) 0 % 04/24/23 05:16 Nucleated RBCs # 0.0 /100WBC 04/24/23 05:16 PT 14.50 SECONDS (12.1-14.9) 04/24/23 07:30 INR 1.10 (0.8-1.2) 04/24/23 07:30 Specimen Type Arterial 04/24/23 05:18 Sample Site Brachial, right 04/24/23 05:18 ABG pH 7.25 (7.35-7.45) L 04/24/23 05:18 ABG pCO2 43.1 mmHg (35-45) 04/24/23 05:18 ABG pO2 313.0 mmHg (80.0-100.0) H 04/24/23 05:18 ABG HCO3 19.0 mmol/L (22-26) L 04/24/23 05:18 ABG Base Excess -8.1 mmol/L (-2.0-2.0) L 04/24/23 05:18 Oral Test N/a 04/24/23 05:18 Hematocrit 51.4 % (37-47) H 04/24/23 05:18 O2 Delivery Device Vent 04/24/23 05:18 FiO2 100.0 % 04/24/23 05:18 Tidal Volume 0.40 04/24/23 05:18 PEEP 8.0 cmH20 04/24/23 05:18 Movie Shot Camera Operator ID Bereket 04/24/23 05:18 Sodium 138 mmol/L (136-145) 04/24/23 05:16 Potassium 4.2 mmol/L (3.5-5.1) 04/24/23 05:16 Chloride 102 mmol/L (98-107) 04/24/23 05:16 Carbon Dioxide 18 mmol/L (22-29) L 04/24/23 05:16 Anion Gap 22.2 (5-19) H 04/24/23 05:16 BUN 9 mg/dL (6-20) 04/24/23 05:16 Creatinine 0.7 mg/dL (0.5-0.9) 04/24/23 05:16 GFR Calculation 95.2 mL/min (90-130) 04/24/23 05:16 Glucose 231 mg/dL (65-115) H 04/24/23 05:16 POC Glucose 209 mg/dL (70-110) H 04/24/23 07:36 Calculated Osmolality 292 mOsm/kg (285-295) 04/24/23 05:16 Lactic Acid 2.9 mmol/L (0.5-2.2) H 04/24/23 07:30 Calcium 8.6 mg/dL (8.5-10.5) 04/24/23 05:16 Magnesium 1.9 mg/dL (1.7-2.3) 04/24/23 05:16 Total Bilirubin 0.7 mg/dL (0.15-1.2) 04/24/23 05:16 AST 587 U/L (0-32) H 04/24/23 05:16 ALT 535 U/L (0-33) H 04/24/23 05:16 Alkaline Phosphatase 84 U/L (35-105) 04/24/23 05:16 Troponin T Baseline 536 ng/L (0-10) H* 04/24/23 05:16 Troponin T 120 Minute 1424 ng/L (0-10) H 04/24/23 07:30 Delta Troponin T 888 ABS# (0-10) H* 04/24/23 07:30 Total Protein 7.3 g/dL (6.6-8.7) 04/24/23 05:16 Albumin 4.5 g/dL (3.5-5.2) 04/24/23 05:16 Globulin 2.8 g/dL (1.3-4.6) 04/24/23 05:16 Ser , Semi-Qnt 91858.00 mIU/mL 04/24/23 05:16 Urine Color Straw (Yellow) 04/24/23 06:41 Urine Appearance Clear (CLEAR) 04/24/23 06:41 Urine pH 5 (5-7) 04/24/23 06:41 Ur Specific Holl[place] 1.005 (1.005-1.030) 04/24/23 06:41 Urine Protein Neg (Negative) 04/24/23 06:41 Urine Glucose (UA) 4+ (Normal) H 04/24/23 06:41 Urine Ketones Negative (Negative) 04/24/23 06:41 Urine Blood 2+ (Negative) H 04/24/23 06:41 Urine Nitrate Negative (Negative) 04/24/23 06:41 Urine Bilirubin Neg (Negative) 04/24/23 06:41 Urine Urobilinogen Norm mg/dL (Negative) 04/24/23 06:41 Ur Leukocyte Esterase Negative (Negative) 04/24/23 06:41 Urine RBC 0-4 /hpf (0-2) H 04/24/23 06:41 Urine WBC 0-4 /hpf (0-5) H 04/24/23 06:41 Ur Squamous Epith Cells 0-4 /hpf (0-5) H 04/24/23 06:41 Amorphous Sediment Not Reportable 04/24/23 06:41 Urine Bacteria Trace /hpf (NONE) 04/24/23 06:41 Salicylates < 0.3 mg/dL (3-10) L 04/24/23 05:16 Urine Opiates Screen Negative ng/mL (Negative) 04/24/23 06:41 Acetaminophen < 5.0 ug/mL (10-30) L 04/24/23 05:16 Ur Barbiturates Screen Negative ng/mL (Negative) 04/24/23 06:41 Ur Phencyclidine Scrn Negative ng/mL (Negative) 04/24/23 06:41 Ur Amphetamines Screen Negative ng/mL (Negative) 04/24/23 06:41 U Benzodiazepines Scrn Negative ng/mL (Negative) 04/24/23 06:41 Urine Cocaine Screen Negative ng/mL (Negative) 04/24/23 06:41 U Marijuana (THC) Screen Positive ng/mL (Negative) H 04/24/23 06:41 Ethyl Alcohol < 10 mg/dL (0-10) 04/24/23 05:16 Critical Care Time Critical Care Time: Critical Care Time: Yes Total Critical Care Time: 45 Attestation: The high probability of a clinically significant, sudden or life threatening deterioration of the patient's cardiovascular respiratory system(s) required my full and direct attention, intervention and personal management. The critical care time is as shown. This time is in addition to time spent performing any reported procedures but includes the following: [x] Data and vital sign review and interpretation [x] Patient assessment, examination and intervention [x] Documentation [x] Medication orders and management Discharge Plan Discharge Patient Disposition: Xfer Short-Term Hosp Clinical Impression: Cardiac arrest with ventricular fibrillation, Chronic hypertension affecting , , Hypertensive emergency Condition: Stable Coding Level of Care Code ED Upholstery Tech for Salma Siu
[2023-04-24 05:32] LABS: ABG PCO2 43.1 mmHg (35-45); ABG PH Result 7.25 (7.35-7.45); Arterial Blood Gas Hematocrit 51.4 % (37-47); Base Excess ABG -8.1 mmol/L (-2.0-2.0); Blood Gas Operator Identificat JB; Blood Gas Sample Site Brachial, right; Blood Gas Sample Type Arterial; Oxygen Device VENT
[2023-04-24 05:54] LABS: Alanine Aminotransferase 535 U/L (0-33); Albumin Level 4.5 g/dL (3.5-5.2); Alkaline Phosphatase 84 U/L (35-105); Aspartate Amino Transferase 587 U/L (0-32); Blood Urea Nitrogen 9 mg/dL (6-20); Calcium 8.6 mg/dL (8.5-10.5); Carbon Dioxide 18 mmol/L (22-29); Chloride 102 mmol/L (98-107); Globulin 2.8 g/dL (1.3-4.6); Glomerular Filtration Rate 95.2 mL/min (90-130); Glucose 231 mg/dL (65-115); Magnesium 1.9 mg/dL (1.7-2.3); Osmolality Calculated 292 mOsm/kg (285-295); Sodium 138 mmol/L (136-145); Total Bilirubin 0.7 mg/dL (0.15-1.2); Total Protein 7.3 g/dL (6.6-8.7)
[2023-04-24 05:56] LABS: Acetaminophen < 5.0 ug/mL (10-30); Alcohol Level < 10 mg/dL (0-10); Salicylate < 0.3 mg/dL (3-10)
[2023-04-24 05:57] LABS: Anion Gap 22.2 (5-19); Potassium 4.2 mmol/L (3.5-5.1)
--- NOTE | 2023-04-24 06:01 | USR_ITS ---
PROCEDURE INFORMATION: Exam: US First Trimester, Transabdominal and US , Transvaginal Exam date and time: 04/24/2023 6:20 AM Age: 33 years old Clinical indication: Condition or disease; Lmp or gestational age (weeks): 9w3d; Other: Post cardiac arrest; 2nd ; LABS AND CLINICAL REPORTS: Last menstrual period start date: 02/10/2023 Gestational age (Established): 10 w 3 d Estimated due date (Established): 11/17/2023 TECHNIQUE: Imaging protocol: Real-time transabdominal obstetrical ultrasound of the maternal pelvis and a first trimester , less than 14 weeks 0 days, with image documentation. Transvaginal imaging was used for better evaluation of the fetus, adnexa, and/or cervix. COMPARISON: US OB >= 14 weeks fetus [id number] 04/08/2023 9:45 PM FINDINGS: Single living intrauterine fetus. [place] rump length of 2.6 cm estimates age at 9 weeks, 3 days. heart activity documented by the technologist, 150 bpm. Amniotic fluid appears adequate for gestation. No definite/significant uterine abnormality. Maternal ovaries/adnexa appear essentially unremarkable. Blood flow detected in each ovary. The urinary bladder was not completely evaluated/imaged at this time. US/US OB <= 14 weeks fetus [id number] IMPRESSION: 1. Single living intrauterine fetus, 9 weeks, 3 days estimated age. 2. Other details discussed above.
[2023-04-24 06:03] LABS: Troponin(5th) Baseline 536 ng/L (0-10)
[2023-04-24] MEDS: iohexol 350 mg/mL 500 mL Btl (per mL) IV (06:10)
--- NOTE | 2023-04-24 06:17 | PC.NURSE ---
0440--20 etomidate administered IVP 0441--100 succs administered IVP 0443--Dr Glynn intubated, with color change. Sz 8, 25@lip 0515--10 Vec administered IVP for tube change per Dr Glynn and RTs
[2023-04-24] MEDS: propofol 1,000 MG/100 ML INJ 1.96 MG IV (06:20)
--- NOTE | 2023-04-24 06:24 | PC.NURSE ---
Dr Jurado gave verbal order to give 10mg Labetalol IVP once.
[2023-04-24] MEDS: labetalol 5 mg/mL SDV 20mL 10 MG IVP (06:26)
[2023-04-24] MEDS: nicardipine 20 MG/200 ML PREMIX 50 MG IV (06:33)
--- NOTE | 2023-04-24 06:34 | PC.NURSE ---
Boyfriend states that yesterday patient woke up and started having pain in her shoulder pain and was crying in pain. Pt went to [place] and had several tests done, and changed dosages in her blood pressure medications. Pt and boyfriend got home, got ready for bed, and was watching TV. At 0320 pt stated that she was hurting again, began vomiting, and laid back down. Boyfriend states that he found her unconscious and stiffened up, and then he began compressions on patient for approximately 10-15 minutes.
--- NOTE | 2023-04-24 06:47 | ECG_ITS ---
[facility] Test Date: 2023-04-24 Pat Name: Avelina Crain Department: Room: Gender: Female Front Office Spec: : 1990 Requested By: Demi Glynn Order Number: [id number] Prakash MD: Iris Treadwell M.D. Measurements Intervals [place] Rate: 120 P: 70 TN: 96 QRS: 15 QRSD: 94 T: 68 QT: 370 QTc: 524 Interpretive Statements SINUS TACHYCARDIA WITH SHORT TN INTERVAL NONSPECIFIC ST & T-WAVE ABNORMALITY ABNORMAL RHYTHM ECG Compared to ECG 04/24/2023 04:49:23 Short TN interval now present T-wave abnormality now present Electronically Signed On 04-24-2023 9:18:14 CDT by Iris Treadwell M.D. [id number]
--- NOTE | 2023-04-24 07:02 | PC.PHAR ---
pt unable to verify medications pt is on vent-pts family verified pts medications-states the pt was still taking clindamycin 300mg q6h x7days rx bottle dated 04/20/23 #8-pts family states the pt takes nifedipine 10mg takes 40mg tid states the pt has been on this dose for a week and a half [facility] is closed to verify when last filled-states the pt had norco from about a month ago when she had work done on her teeth but states they dont think she has taken it since then-pts family states the pt hasnt started taking the dha 200mg daily written in 04/15/23 states the insurance wont pay for them yet-notes are made in the pharmacy comments
[2023-04-24 07:11] LABS: Bilirubin Urine Neg (Negative); Blood Urine 2+ (Negative); Glucose Urine UA 4+ (Normal); Ketones Urine Negative (Negative); Nitrate Urine Negative (Negative); Protein Urine Neg (Negative); Specific Gravity, Urine 1.005 (1.005-1.030); Urine Appearance Clear (CLEAR); Urine Color Straw (Yellow); Urobilinogen Urine Norm (Negative); pH Urine 5 (5-7)
[2023-04-24 07:12] LABS: Add Urine Culture? No; Add Urine Microscopic? YES; Amphetamines Screen Urine Negative (Negative); Bacteria Urine TRACE /hpf; Barbiturates Screen Urine Negative (Negative); Benzodiazepines Screen Urine Negative (Negative); Cocaine Screen Urine Negative (Negative); Leukocyte Esterase Urine Negative (Negative); Opiate Screen Urine Negative (Negative); PCP Screen Urine Negative (Negative); RBC Urine 0-4 /hpf (0-2); Squamous Epithelial Cell Urine 0-4 /hpf (0-5); THC Screen Urine Positive (Negative); WBC Urine 0-4 /hpf (0-5)
[2023-04-24 07:20] VITALS: RESP 28
[2023-04-24 07:32] VITALS: BP 133/102; PULSE 125; RESP 27; O2SAT 97
[2023-04-24 07:39] LABS: Glucose Point of Care 209 mg/dL (70-110)
[2023-04-24] MEDS: heparin drip 25,000 UNIT/500 ML PREMIX 21 UNIT IV (07:39)
[2023-04-24] MEDS: heparin 5,000 unit/mL INJ 1 mL IV (07:41)
[2023-04-24] MEDS: cefTRIAXone 1,000 MG in sodium chloride 0.9% (plus) 50 ML 100 MG IV (07:53)
[2023-04-24 07:55] VITALS: BP 136/102; PULSE 121; RESP 28; O2SAT 98
[2023-04-24 08:10] LABS: Lactic Sepsis W/Reflex 2.9 mmol/L (0.5-2.2)
[2023-04-24 08:14] LABS: Troponin 5 2HR 1424 ng/L (0-10); Troponin 5 2HR Delta 888 ABS# (0-10)
[2023-04-24] MEDS: propofol 1,000 MG/100 ML INJ 19.6 MG IV (08:40)
[2023-04-24] MEDS: nicardipine 20 MG/200 ML PREMIX 100 MG IV (08:42)
--- NOTE | 2023-04-24 08:48 | PC.NURSE ---
report called to Franicne at [facility] @[id number]
[2023-04-24 09:25] LABS: Reflex Lactate Order REFLEX LACTIC ORDERD
== END 2023-04-24 09:15 | disposition short-term general hospital (02) ==
PROVIDERS: Emergency Medicine; Emergency Provider Family Medicine
DX: O99.411 Diseases of the circulatory system complicating pregnancy, first trimester (principal); I46.9 Cardiac arrest, cause unspecified; O16.1 Unspecified maternal hypertension, first trimester; I16.1 Hypertensive emergency; I49.01 Ventricular fibrillation; Z3A.09 9 weeks gestation of pregnancy
CPT/HCPCS: 31500; 36416; 70450; 71045; 71275; 76801; 80053; 80306; 80307; 81001; 82803; 82962; 83605; 83735; 84484; 84702; 85025; 85610; 87070; 87205; 93005; 94002; 94799; 96365; 96366; 96367; 96375; 99291; J0330; J0360; J0696; J1644; J2704; J3010; J3490; Q9967

== ENCOUNTER → 2023-05-29 09:52 | Outpatient (BNVA) | payer MEDICAID, SELFPAY | PROVIDERS: Visit Provider Obstetrics & Gynecology | DX: Z34.90 Encounter for supervision of normal pregnancy, unspecified, unspecified trimester (principal) | CPT/HCPCS: 80307; 82950; 84315; 84443; 85027; 86592; 86762; 86803; 86850; 86900; 87086; 87340; 87491; 87591; 87624; 87806 ==

== ENCOUNTER 2023-12-03 10:27 | Emergency (ER) | payer MEDICAID, SELFPAY ==
[2023-12-03 10:47] VITALS: BP 174/142; PULSE 88; RESP 15; TEMP 36.7; O2SAT 96; BMI 26.4
[2023-12-03 11:03] VITALS: PULSE 77; O2SAT 99
--- NOTE | 2023-12-03 11:10 | W.ED.GENADLT ---
HPI - General Adult General: Chief complaint: General Medical Stated complaint: rear pain Time Seen by Provider: 12/03/23 10:55 Source: patient Mode of arrival: ambulatory Limitations: no limitations History of Present Illness: 33-year-old female who is 1 month who states that she has been having some rectal pain and went to urgent care today and a sent here concerned she had a rectal prolapse. States she had been having some constipation she has been taking stool softeners though. Denies any fever denies any blood in her stool Associated symptoms: Deny chest pain, dyspnea, headache(s), nausea, rash or vomiting Review of Systems Const: Denies: fever(s), chills, body aches or change in appetite ENMT: Denies: throat pain or dental pain Card: Denies: chest pain Resp: Denies: dyspnea GI: Reports: rectal pain; Denies: abdominal pain, nausea, vomiting or diarrhea Musc: Denies: neck pain or back pain Skin/Breast: Denies: rash Neuro: Denies: headache(s) PFSH ED PFSH: Family History Grandmother Diabetes Maternal Hypertension Denies family history of Cervical cancer Breast cancer Stroke Physical Exam Const: COMMON NORMALS: no acute distress, patient oriented x3 and healthy appearing HENMT: COMMON NORMALS: normocephalic and atraumatic HEAD & SCALP: normocephalic and atraumatic Neck/C-Spine: COMMON NORMALS: full ROM and supple Chest: COMMONS NORMALS: normal inspection of the chest Resp: COMMON NORMALS: normal respiratory effort Cardio: COMMON NORMALS: regular rate, regular rhythm and No murmurs present (Cardio) RATE: regular rate RHYTHM: regular rhythm GI: COMMON NORMALS: Normal to inspection, nondistended, normoactive bowel sounds present, Soft to palpation, non-tender and no masses PALPATION: Yes Soft to palpation OTHER: Hemorrhoid noted on rectal exam no prolapse Extremity: COMMON NORMALS: normal to inspection and full ROM Neuro: COMMON NORMALS: patient oriented x3, moves all extremities and no focal motor deficits Psych: COMMON NORMALS: mental status grossly normal, Normal thought process present and cooperative THOUGHT PROCESS: Normal thought process present Skin: COMMON NORMALS: no rashes or lesions noted and no wounds GENERAL SKIN EXAM: no rashes or lesions noted Course Vital Signs: Vital signs: Vital Signs Temperature 98.1 F 12/03/23 10:47 Pulse Rate 77 12/03/23 11:03 Respiratory Rate 15 12/03/23 10:47 Blood Pressure 174/142 12/03/23 10:47 Pulse Oximetry 99 12/03/23 11:03 Oxygen Delivery Me thod Room Air 12/03/23 11:03 MDM - General Adult Medical Decision Making Patient presents here with rectal pain she does have a hemorrhoid here we will place her on Proctofoam she is to continue her stool softener and follow-up with her PCP No radiology studies performed this visit Discharge Plan Discharge Patient Disposition: Home Clinical Impression: Hemorrhoid Qualifiers: Hemorrhoid type: unspecified Qualified Code(s): K64.9 - Unspecified hemorrhoids Condition: Stable Prescriptions: New Proctofoam HC 1-1 % foam 1 applic NH BID PRN (Reason: hemorrhoids) Qty: 10 0RF No Action labetalol 200 mg tablet 200 mg PO BID docusate sodium 100 mg capsule 100 mg PO BID hydralazine 50 mg tablet 50 mg PO TID levetiracetam 750 mg tablet 750 mg PO BID acetaminophen 325 mg capsule 325 mg PO QID PRN DHA 200 mg capsule 200 mg PO DAILY Qty: 30 6RF Rx Instructions: not started as of 04/24/23 per pts family Discharge Orders: Discharge ED (Routine); Ordered 12/03/23 Ordered By: Demi Glynn Discharge Diet: Advance as tolerated Discharge Activity: Resume usual activity Patient Instructions: Hemorrhoids (ED) Coding Level of Care Code ED [employer] for Salma Siu
[2023-12-03 11:16] VITALS: PULSE 73; O2SAT 97
== END 2023-12-03 11:17 | disposition home or self-care (01) ==
PROVIDERS: Emergency Provider Emergency Medicine
DX: K64.9 Unspecified hemorrhoids (principal)
CPT/HCPCS: 99283